=== PATIENT | male | born 1975 | race Two or more races ===

== ENCOUNTER 2020-10-24 12:24 | Inpatient (IN) | payer MEDICAID, OTHER ==
[~2020-10-24] VITALS: Ht 180.3 cm; Wt 91.0 kg
[2020-10-24] MEDS ORDERED: SODIUM CHLORIDE 0.9% 1,000 ML IV ONE (12:45)
[2020-10-24] MEDS ORDERED: MORPHINE SULFATE 10 MG/ML INJ 1ML SDV IV ONE (12:45)
[2020-10-24] MEDS ORDERED: ONDANSETRON HCL 4 MG/2 ML VIAL IV ONE (12:45)
[2020-10-24] MEDS ORDERED: MORPHINE SULFATE 4 MG/ML SYR/VIAL IV ONE (13:00)
[2020-10-24 13:42] LABS: Basophils # (auto) 0 10 ^3/uL (0-0.2); Basophils % (auto) 0.7 % (0.0-2.0); Eosinophils # (auto) 0.1 10 ^3/uL (0-0.8); Hematocrit 44.8 % (41.0-53.0); Hemoglobin 15.5 g/dL (13.5-17.5); Lymphocytes # (auto) 1.4 10 ^3/uL (0.4-5.4); Lymphocytes % (auto) 24.2 % (10.0-50.0); Mean Corpuscular Hgb Conc. 34.6 g/dL (32.0-36.0); Mean Corpuscular Volume 89.7 fL (80.0-100.0); Monocytes # (auto) 0.6 10 ^3/uL (0-1.3); Neutrophils # (auto) 3.8 10 ^3/uL (1.6-8.6); Neutrophils % (auto) 64.1 % (37.0-80.0); Nucleated Red Blood Cells % 0.1 %; Platelet Count (auto) 271 10^3/uL (140-450); Red Blood Cells 4.99 10^6/uL (4.5-5.90); Red Cell Distribution Width 13.4 % (11.8-14.3); White Blood Cell 5.9 10^3/uL (4.4-10.8)
[2020-10-24 14:02] LABS: Calcium 8.7 mg/dL (8.5-10.1); INR 0.97 (0.9-1.15); Partial Thromboplastin Time 27.2 sec (23.0-31.2); Potassium 3.5 mmol/L (3.5-5.1)
[2020-10-24 14:05] LABS: BUN/Creatinine Ratio 9.6; Bilirubin, Total 0.3 mg/dL (0.2-1.0); Total Protein 7.7 g/dL (6.4-8.2)
[2020-10-24] MEDS ORDERED: cefTRIAXone 1GM/50ML D5W 50 ML IV ONE (14:30)
[2020-10-24] MEDS ORDERED: NITROGLYCERIN 0.4 MG SL TAB SL PRN ×2 (15:30)
[2020-10-24] MEDS ORDERED: DOCUSATE SOD 100 MG CAP PO PRN (15:30)
[2020-10-24] MEDS ORDERED: LACTATED RINGER'S 1,000 ML IV ONE (15:30)
[2020-10-24] MEDS ORDERED: ONDANSETRON HCL 4 MG/2 ML VIAL IV PRN (15:30)
[2020-10-24] MEDS ORDERED: LORazepam 0.5 MG TAB PO PRN (15:30)
[2020-10-24] MEDS ORDERED: ACETAMINOPHEN 325 MG TAB PO PRN (15:30)
[2020-10-24] MEDS ORDERED: MORPHINE SULF INJ 2 MG/ML SYRINGE 1ML IV PRN ×2 (15:30)
[2020-10-24] MEDS ORDERED: ALUM & MAG HYDROX-SIMETH LIQ(MAALOX) 30 ML PO PRN (15:30)
[2020-10-24] MEDS ORDERED: hydrALAZINE HCL 20 MG/ML VL IV PRN (15:30)
[2020-10-24] MEDS ORDERED: metroNIDAZOLE 500MG/100ML 100 ML IV ONE (15:30)
[2020-10-24] MEDS ORDERED: CHOL1CAP21 PO (15:48)
[2020-10-24] MEDS ORDERED: HYDR-392 PO (15:48)
[2020-10-24 16:01] LABS: Cholesterol 202 mg/dL (< 200); HDL Cholesterol 53 mg/dL (40-59); LDL Cholesterol 125 mg/dL (< 100); Triglycerides 121 mg/dL (< 150)
[2020-10-24] MEDS ORDERED: amLODIPine BESYLATE 5 MG TAB PO ONE (16:15)
[2020-10-24] MEDS: LACTATED RINGER'S 1,000 ML IV SCH (17:38)
[2020-10-24] MEDS: MORPHINE SULF INJ 2 MG/ML SYRINGE 1ML IV PRN (21:49)
[2020-10-24] MEDS: metroNIDAZOLE 500MG/100ML 100 ML IV SCH (23:43)
[2020-10-25 03:56] VITALS: BP 157/93
[2020-10-25] MEDS: MORPHINE SULF INJ 2 MG/ML SYRINGE 1ML IV PRN ×2 (04:04→20:04)
[2020-10-25] MEDS: LACTATED RINGER'S 1,000 ML IV SCH ×2 (05:48→18:10)
[2020-10-25] MEDS: metroNIDAZOLE 500MG/100ML 100 ML IV SCH ×3 (05:48→21:49)
[2020-10-25] MEDS ORDERED: ceFAZolin 1GM/50ML 50 ML IV ONE (06:39)
[2020-10-25] MEDS ORDERED: LIDOCAINE 1% (LOCAL ANESTH.) PF 5ml SDV ONE (09:15)
[2020-10-25] MEDS ORDERED: SUCCINYLCHOLINE CHLORIDE 20 MG/ML 10ML VIAL IV ONE (09:15)
[2020-10-25] MEDS ORDERED: MIDAZOLAM HCL 1MG/1ML-2 ML VIAL ONE (09:16)
[2020-10-25] MEDS ORDERED: METOCLOPRAMIDE HCL 5MG/ml INJ 2ml VIAL ONE (09:16)
[2020-10-25] MEDS ORDERED: PROPOFOL 10 MG/ML 20 ML IV ONE (09:19)
[2020-10-25] MEDS ORDERED: ROCURONIUM 10MG/ML 10ML VIAL IV ONE (09:20)
[2020-10-25] MEDS ORDERED: fentaNYL CITRATE 100 MCG/2 ML VL ONE (09:28)
[2020-10-25] MEDS ORDERED: HYDROmorphone HCL 2 MG/ML VL IV PRN ×2 (09:30)
[2020-10-25] MEDS ORDERED: NALOXONE HCL 0.4 MG/ML VIAL IV PRN (09:30)
[2020-10-25] MEDS ORDERED: ONDANSETRON HCL 4 MG/2 ML VIAL IV PRN (09:30)
[2020-10-25] MEDS ORDERED: KETOROLAC TROMETH 30 MG/ML 1ML VIAL ONE (09:43)
[2020-10-25] MEDS ORDERED: NEOSTIGMINE 1 MG/ML INJ (10mg/10ML VIAL) ONE (09:50)
[2020-10-25] MEDS ORDERED: GLYCOPYRROLATE 0.2 MG/ML 1ML VIAL ONE (09:50)
[2020-10-25] MEDS ORDERED: hydrALAZINE HCL 20 MG/ML VL ONE (09:53)
[2020-10-25] MEDS ORDERED: HYDROmorphone HCL 2 MG/ML VL IV ONE (10:20)
[2020-10-25] MEDS ORDERED: ONDANSETRON HCL 4 MG/2 ML VIAL IV ONE (10:20)
[2020-10-25] MEDS: CEFTRIAXONE SODIUM 2 GM in D5W 5% 50 ML IV SCH (11:31)
[2020-10-25] MEDS: amLODIPine BESYLATE 5 MG TAB PO SCH (11:32)
[2020-10-25] MEDS: CHOLECALCIFEROL (VITD3) 2,000 UNIT CAP PO SCH (11:32)
[2020-10-25 12:00] VITALS: BP 146/82
[2020-10-25] MEDS: HYDROcodone-ACET 5/325MG TAB PO PRN (14:23)
[2020-10-25 16:00] VITALS: BP 134/83
[2020-10-26] VITALS: BP 142/93
[2020-10-26] MEDS: HYDROcodone-ACET 5/325MG TAB PO PRN (06:09)
[2020-10-26] MEDS: metroNIDAZOLE 500MG/100ML 100 ML IV SCH (06:09)
[2020-10-26] MEDS: LACTATED RINGER'S 1,000 ML IV SCH (07:30)
[2020-10-26 08:00] VITALS: BP 154/102
[2020-10-26] MEDS: CEFTRIAXONE SODIUM 2 GM in D5W 5% 50 ML IV SCH (09:51)
[2020-10-26] MEDS: amLODIPine BESYLATE 5 MG TAB PO SCH (09:52)
[2020-10-26] MEDS: CHOLECALCIFEROL (VITD3) 2,000 UNIT CAP PO SCH (09:53)
[2020-10-26 13:50] VITALS: BP 154/102
== END 2020-10-26 14:37 | disposition home or self-care (01) | DRG 234 ==
LOC: ER 12:24 → TELE 12:25 → TELE-CENTR 10-25 03:09
PROVIDERS: ADMIT Hospitalist; ATTEND Family Medicine
PROC: 3E013GC Introduction of Other Therapeutic Substance into Subcutaneous Tissue, Percutaneous Approach (ICD-10-PCS; 2020-10-25)
PROC: 0DTJ4ZZ Resection of Appendix, Percutaneous Endoscopic Approach (ICD-10-PCS; principal; 2020-10-25 09:30)
DX: K35.80 Unspecified acute appendicitis (principal); I16.9 Hypertensive crisis, unspecified; F11.20 Opioid dependence, uncomplicated; K59.04 Chronic idiopathic constipation; M54.5 Low back pain; E66.9 Obesity, unspecified; Z20.822 Contact with and (suspected) exposure to COVID-19; I10 Essential (primary) hypertension; Z82.49 Family history of ischemic heart disease and other diseases of the circulatory system; Z68.28 Body mass index [BMI] 28.0-28.9, adult
CPT/HCPCS: 36415; 71045; 74176; 80053; 80061; 82150; 83036; 83690; 83735; 84484; 85025; 85610; 85730; 86850; 86900; 86901; 87426; G0378; J0330; J0690; J0696; J1885; J2250; J2405; J2704; J3490; J7060

== ENCOUNTER 2025-07-12 16:42 | Emergency (ER) | payer MEDICAID ==
[~2025-07-12] VITALS: Ht 180.3 cm; Wt 95.5 kg
[~2025-07-12 16:42] MED LIST: CHOL1CAP21 PO; HYDR-392 PO
--- NOTE | 2025-07-12 17:09 | ED.PDOC ---
History of Present Illness(SKN HPI Comments A 49 YEAR OLD MALE PRESENTS TO THE ED WITH COMPLAINT OF LEFT FOOT SWELLING S/P STINGRAY STING. PATIENT REPORTS THAT ON THURSDAY HE HAD BEEN [place] THE [place] WHEN ALL OF A SUDDEN A STINGRAY HAD PIERCED HIS LEFT FOOT WITH ITS DEB. PATIENT RELAYS THAT HE HAD THEN SEEN HIS PCP LATER THE NEXT DAY AND HE WAS PRESCRIBED KEFLEX AND HYDROCHLOROTHIAZIDE. PATIENT STATES HE HAS NOT FELT ANY RELIEF AND IS NOW DEVELOPING WORSENING REDNESS, SWELLING, AND PAIN SURROUNDING THE PUNCTURE SITE. PATIENT DENIES FEVER, CHILLS, SHORTNESS OF BREATH, CHEST PAIN, ABDOMINAL PAIN, NAUSEA, VOMITING, HEADACHE, OR OTHER COMPLAINTS. NO OTHER SYMPTOMS OR MODIFYING FACTORS AT THIS TIME. PATIENT IS ALERT, ORIENTED X 4, AND HAS STEADY GAIT. Chief Complaint: Animal Bite Time Seen by MD: 16:56 Primary Care Provider: TIP History of Present Illness: Nurses Notes, Medications, Allergies Allergies: Coded Allergies: NO KNOWN ALLERGIES (Unverified , 10/24/20) Home Meds Active Scripts Naproxen (Naproxen) 500 Mg Tab, 500 MG PO BID, #30 TAB Prov:JENSEN MORRIS 07/12/25 Levofloxacin Hemihydrate (LEVAQUIN 500 MG) 500 Mg Tab, 1 TAB PO DAILY, #10 TAB Prov:JENSEN MORRIS 07/12/25 Reported Medications Cholecalciferol (Vitamin D3) 50,000 Unit Cap, 33164 UNIT PO QWEEKLY, CAP 10/24/20 Hydrocodone-Acetaminophen ([place] 7.5-325 mg) 1 Tab Tab, 1 TAB PO TIDP, TAB 10/24/20 Information Source: Patient Mode of Arrival: Ambulatory Severity: Moderate Timing: Days Duration: Since onset Prehospital treatment: None Location: Foot Mechanism: Spontaneous Onset (STINGRAY DEB) Developed: Other (REDNESS, SWELLING, AND PAIN) Occurence: In Ray Object: None Condition of Object: None Retained Foreign Body: No Wound Type: Puncture Immunization Status of Animal: NA Tetanus: >5 Years, Unknown Associated Signs and Symptoms: Redness, Swelling, Pain Past Medical History PAST MEDICAL HISTORY: Denies Surgical History: Denies all surgeries Family History Family History: Reviewed,noncontributory to illness, Family hx of HTN Social History Smoker: Non-Smoker Alcohol: Rarely Drugs: Denies Drug Use Lives In: Home Constitutional: denies: chills, diaphoresis, fatigue, fever, malaise, sweats, weakness, others EENTM: denies: blurred vision, double vision, ear bleeding, ear discharge, ear drainage, ear pain, ear ringing, eye pain, eye redness, hearing loss, mouth pain, mouth swelling, nasal discharge, nose bleeding, nose congestion, nose pain, photophobia, tearing, throat pain, throat swelling, voice changes, others Respiratory: denies: cough, hemoptysis, orthopnea, SOB at rest, shortness of b reath, SOB with excertion, stridor, wheezing, others Cardiovascular: denies: chest pain, dizzy spells, diaphoresis, Dyspnea on exertion, edema, irregular heart beat, left arm pain, lightheadedness, palpitations, PND, syncope, others Gastrointestinal: denies: abdomen distended, abdominal pain, blood streaked bowels, constipated, diarrhea, dysphagia, difficulty swallowing, hematemesis, melena, nausea, poor appetite, poor fluid intake, rectal bleeding, rectal pain, vomiting, others Genitourinary: denies: burning, dysuria, flank pain, frequency, hematuria, incontinence, penile discharge, penile sore, pain, testicle pain, testicle swelling, urgency, others Neurological: denies: dizziness, fainting, headache, left sided numbness, left sided weakness, numbness, paresthesia, pre-existing deficit, right sided numbness, right sided weakness, seizure, speech problems, tingling, tremors, weakness, others Musculoskeletal: reports: others (LEFT FOOT SWELLING, REDNESS, AND PAIN); denies: back pain, gout, joint pain, joint swelling, muscle pain, muscle stiffness, neck pain Integumetry: reports: others (REDNESS AND SWELLING ON LEFT DORSAL FOOT. ); denies: bruises, change in color, change in hair/nails, dryness, laceration, lesions, lumps, rash, wounds Allergic/Immunocompromised: denies: Difficulty Healing, Frequent Infections, Hives, Itching, others Hematologic/Lymphatic: denies: anemia, blood clots, easy bleeding, easy bruising, swollen glands, others Endocrine: denies: excessive hunger, excessive sweating, excessive thirst, excessive urination, flushing, intolerance to cold, intolerance to heat, unexplained weight gain, unexplained weight loss, others Psychiatric: denies: anxiety, bipolar disorder, depression, hopeless, panic disorder, schizophrenia, sleepless, suicidal, others All Other Systems: Reviewed and Negative Physical Exam General Appearance: No Apparent Distress, Normal HEENT: Normal ENT Inspection, PERRL/EOMI, Pharynx Normal, TMs Normal Neck: Full Range of Motion, Non-Tender, Normal, Normal Inspection Respiratory: Chest Non-Tender, Lungs Clear, No Accessory Muscle Use, No Respiratory Distress, Normal Breath Sounds Cardiovascular: No Edema, No JVD, No Murmur, No Gallop, Normal Peripheral Pulses, Regular Rate/Rhythm Breast Exam: Deferred Gastrointestinal: No Organomegaly, Non Tender, No Pulsatile Mass, Normal Bowel Sounds, Soft Genitalia: Deferred Pelvic: Deferred Rectal: Deferred Extremities: No calf tenderness, Normal capillary refill, Normal range of motion, No pedal edema, Swelling (WITH REDNESS AND SWELLING ON LEFT DORSAL FOOT. ) Musculoskeletal : Apperance: Normal Neurologic: Alert, closing manager II-XII nml as Tested, No Motor Deficits, Normal Affect, Normal Mood, No Sensory Deficits Cerebellar Function: Normal Reflexes: Normal Skin: Dry, Normal Color, Warm, Other (LOCALIZED ERYTHEMA, SWELLING AND HARDNESS ON LEFT DORSAL FOOT, NO FB SEEN, MILD SKIN BLISTER ON LEFT DORSAL FOOT. ) Peripheral Pulses: 2+ carotid (R), 2+ carotid (L), 2+ dorsalis pedis (R), 2+ dorsalis pedis (L) Lymphatic: No Adenopathy Was a procedure done? Was a procedure done?: No Differential Diagnosis (INTG) Differential Diagnosis: Cellulitis, Puncture Wound Differential Diagnosis: Cellulitis X-Ray, Labs, Meds, VS Vital Signs Date Time Temp Pulse Resp B/P (MAP) Pulse Ox O2 Delivery O2 Flow Rate FiO2 07/12/25 18:31 98.7 82 16 122/80 (94) 96 98.7 07/12/25 18:31 82 16 96 Room Air 07/12/25 16:44 98.5 80 20 144/90 98 98.5 Current Medications Medications (Trade) Dose Ordered Sig/Ira Route Start Time Stop Time Status Last Admin Levofloxacin/ Dextrose 100 ml @ 100 mls/hr ONCE ONCE IV 07/12/25 17:30 07/12/25 18:29 DC 07/12/25 17:55 Ceftriaxone Sodium 50 ml @ 100 mls/hr ONCE ONCE IV 07/12/25 17:30 07/12/25 17:59 DC 07/12/25 17:[address] [address] Ph: [phone] DIAGNOSTIC IMAGING Diagnostic Imaging Report : [id number] Signed PATIENT: MARINA BOWDEN ACCT: [id number] UNIT: [id number] : 1975 LOC: ER ROOM / BED: / AGE / SEX: 49 / M ADM STATUS: REG ER SERVICE 170 ORDERING PHYSICIAN: JENSEN MORRIS PROCEDURE(s): LFOT2 - L FOOT 2 VIEW XRAY REASON: STINGRAY BITE ORDER NUMBER(s): [id number], ACCESSION NUMBER(s): [id number] EXAM: XY L FOOT 2 VIEW XRAY INDICATION: STINGRAY BITE TECHNIQUE: 2 views of the left foot COMPARISON: None FINDINGS/IMPRESSION: No radiographic evidence of an acute osseous abnormality. There is no acute fracture, osseous malalignment, or aggressive focal osseous lesion. Soft tissue swelling without radiopaque foreign body of the dorsal aspect of the forefoot. ATED BY: MIGUE RODRIGUEZ MD DICTATED DATE/TIME: 07/12/251754 SIGNED BY: MIGUE RODRIGUEZ MD SIGNED DATE/TIME: 07/12/251754 CC: X-Ray, Labs, Meds, VS Comment EXTERNAL MEDICAL RECORDS REVIEWED: [NONE] INDEPENDENT HISTORIANS: [NONE] SOCIAL DETERMINANTS OF HEALTH: [NONE] LABS ORDERED: NONE REVIEWED AND INTERPRETED RESULTS: LEFT FOOT XR IMAGING ORDERED: LT FOOT XR TREATMENTS ORDERED: ROCEPHIN 1G IV, LEVAQUIN 500MG IV PROCEDURES PERFORMED: NONE CRITICAL CARE TIME: NONE I HAVE DISCUSSED THE PATIENT WITH THE ATTENDING PHYSICIAN, DR. NGUYEN, HE AGREES WITH THE PATIENT'S PLAN OF CARE AND DISPOSITION. BASED ON HISTORY OF PRESENT ILLNESS, AND PHYSICAL EXAM, PATIENT WILL BE DISCHARGED HOME. DISCUSSED PLAN FOR DISCHARGE HOME WITH RX LEVAQUIN AND NAPROSYN. MEDICATION WARNINGS GIVEN. SHARED DECISION MAKING: DISCUSSED WITH PATIENT THAT THEIR WORKUP WAS NORMAL. PATIENT INSTRUCTED TO FOLLOW UP WITH PRIMARY CARE PROVIDER IN 1-2 DAYS FOR RE- EVALUATION OF SYMPTOMS. PATIENT VERBALIZES UNDERSTANDING TO RETURN TO ED FOR NEW OR WORSENING SYMPTOMS OR IF FOLLOW UP WITH PCP CANNOT BE OBTAINED. PATIENT FEE LS COMFORTABLE GOING HOME AT THIS TIME. ALL QUESTIONS ADDRESSED AT TIME OF DISCHARGE. Time of 1ST Reevaluation: 18:40 Reevaluation 1ST: Improved Patient Education/Counseling: Diagnosis, Treatment, Need For Follow Up Family Education/Counseling: Diagnosis, Treatment, No Family Present Medical Screening: No EMC Exist At This Time SEPSIS Sepsis Screen Date sepsis recognized/suspect: Jul 12, 2025 Time Sepsis recognized/suspect: 1645 Recent Procedure: No On Antibiotic Therapy: No Respiratory Rate >20: No Heart Rate >90: No Temp<36 C (96.8 F) or >38.3 C: No SBP <90 or MAP <65 mmHG: No New Acute Mental Status Change: No Is the patient on CPAP, BIPAP,: No Physician Orders L Foot 2 View Xray (07/12/25 17:03) Heplock Iv (07/12/25 ) Vital Signs Date Time Temp Pulse Resp B/P (MAP) Pulse Ox O2 Delivery O2 Flow Rate FiO2 07/12/25 18:31 98.7 82 16 122/80 (94) 96 98.7 07/12/25 18:31 82 16 96 Room Air 07/12/25 16:44 98.5 80 20 144/90 98 98.5 Departure 1 Departure Time of Disposition: 18:40 Impression: Primary Impression: Contact with stingray as cause of accidental injury Additional Impression: Suspected soft tissue infection Disposition: HOME / SELF CARE / HOMELESS Condition: Stable Additional Instructions: FOLLOW-UP WITH PCP IN 1 TO 2 DAYS. TAKE MEDICATIONS PRESCRIBED. RETURN TO ED FOR ANY NEW OR WORSENING SYMPTOMS. e-Prescriptions Naproxen (Naproxen) 500 Mg Tab 500 MG PO BID, #30 TAB Prov: JENSEN MORRIS 07/12/25 Levofloxacin Hemihydrate (LEVAQUIN 500 MG) 500 Mg Tab 1 TAB PO DAILY, #10 TAB Prov: JENSEN MORRIS 07/12/25 Discharged With: Self Critical Care Note Critical Care Time?: No Stability Stability form required: No Heart Score Heart Score: Heart Score Response (Comments) Value History N/A 0 EKG N/A 0 Age N/A 0 Risk Factors N/A 0 Troponin N/A 0 Total 0 I personally scribed for JENSEN MORRIS ([email or web address]) on 07/12/25 at 17:09. E lectronically submitted by Shawn Sosa ([email or web address]). I personally scribed for JENSEN MORRIS ([email or web address]) on 07/12/25 at 17:40. Sandy ctronically submitted by Shawn Sosa ([email or web address]). I personally scribed for JENSEN MORRIS ([email or web address]) on 07/12/25 at 18:01. Elect ronically submitted by Shawn Sosa ([email or web address]). JENSEN MORRIS Jul 12, 2025 17:09
[2025-07-12] MEDS ORDERED: LEVO500T91 PO (17:37)
[2025-07-12] MEDS ORDERED: NAPR-746 PO (17:37)
--- NOTE | 2025-07-12 17:57 | DVH ---
EXAM: XY L FOOT 2 VIEW XRAY INDICATION: STINGRAY BITE TECHNIQUE: 2 views of the left foot COMPARISON: None FINDINGS/IMPRESSION: No radiographic evidence of an acute osseous abnormality. There is no acute fracture, osseous malalig nment, or aggressive focal osseous lesion. Soft tissue swelling without radiopaque foreign body of th e dorsal aspect of the forefoot.
[2025-07-12 18:31] VITALS: BP 122/80; PULSE 82; RESP 16; TEMP 98.7; O2SAT 96
== END 2025-07-12 18:34 | disposition home or self-care (01) ==
LOC: ER 16:42
DX: S90.821A Blister (nonthermal), right foot, initial encounter (principal); M79.89 Other specified soft tissue disorders; X58.XXXA Exposure to other specified factors, initial encounter; Y93.89 Activity, other specified; Y92.89 Other specified places as the place of occurrence of the external cause; Y99.8 Other external cause status
CPT/HCPCS: 73620; 96365; 96368; 99284; J0696; J1956